=== PATIENT | male | born 1990 | race American Indian/Alaskan Native ===

== ENCOUNTER 2021-12-01 16:18 | Emergency (ER) | payer OTHER ==
[~2021-12-01] VITALS: Ht 177.8 cm; Wt 90.7 kg
== END 2021-12-01 18:10 | disposition home or self-care (01) ==
LOC: ED 16:18
DX: S91.112A Laceration without foreign body of left great toe without damage to nail, initial encounter (principal); X50.9XXA Other and unspecified overexertion or strenuous movements or postures, initial encounter
CPT/HCPCS: 64450; 99283-25

== ENCOUNTER 2022-06-02 13:11 | Emergency (ER) | payer OTHER ==
[~2022-06-02] VITALS: Ht 177.8 cm; Wt 90.7 kg
== END 2022-06-02 15:53 | disposition home or self-care (01) ==
LOC: ED 13:11
DX: S62.514A Nondisplaced fracture of proximal phalanx of right thumb, initial encounter for closed fracture (principal); X58.XXXA Exposure to other specified factors, initial encounter
CPT/HCPCS: 73140; 99283-25